=== PATIENT | male | born 1940 | race Caucasian/White ===

== ENCOUNTER 2017-07-27 19:57 | Emergency (ER) | payer BC, MEDICARE ==
[~2017-07-27] VITALS: Ht 193 cm; Wt 118.2 kg
[~2017-07-27 19:57] MED LIST: ACTOS15 MG PO; ALLOPURINOL100 MG PO; AMARYL 2MG T2 MG/TAB PO; AMARYL1 MG PO; CIALIS20 MG PO; CRESTOR40 MG PO; DIOVAN320 MG PO; GLUCOPHAGE XR500 M1 PO; LANTUS100 U/ML; LEVOTHYROXINE PO; NOVOLOG FLEX100 U/ML SC; NOVOLOG100 U/ML SC
[2017-07-27 19:59] VITALS: TEMP 98.8
[2017-07-27 21:36] VITALS: BP 149/72; PULSE 66
== END 2017-07-27 21:37 | disposition home or self-care (01) ==
LOC: COL.ER 19:57
DX: S09.90XA Unspecified injury of head, initial encounter (principal); S01.01XA Laceration without foreign body of scalp, initial encounter; Z79.4 Long term (current) use of insulin; W18.39XA Other fall on same level, initial encounter; Y92.009 Unspecified place in unspecified non-institutional (private) residence as the place of occurrence of the external cause

== ENCOUNTER 2017-08-08 09:54 | Emergency (ER) | payer BC, MEDICARE | END 2017-08-08 10:10 | disposition home or self-care (01) | LOC: COL.ER 09:54 | DX: Z48.02 Encounter for removal of sutures (principal); Z79.4 Long term (current) use of insulin ==

== ENCOUNTER 2019-03-26 09:48 | Inpatient (IN) | payer BC ==
[~2019-03-26] VITALS: Ht 193 cm; Wt 111.0 kg
[~2019-03-26 09:48] MED LIST changes: +BENICAR40 MG PO; +OZEMPIC0.25 MG/0. SQ
[2019-04-06] VITALS (12 sets, daily range): BP systolic 118–148; BP diastolic 60–68; PULSE 70–88; TEMP 97.2–98.4
--- NOTE | 2019-04-06 12:42 | NUR ---
BG 267 reported to Doroteo Roblero CRNA. Orders for NS IVF and to re-check BG at 1300.
--- NOTE | 2019-04-06 12:50 | NUR ---
Patient arrives to [facility] [place] [facility] [place] with steady gait. He is alert and oriented. Procedure confirmed, denies any questions, and verbalizes understanding. VSS and WNL on room air. He changes to his clothing independently. PIV started in right forearm with x1 attempt and without complication. Breath sounds clear bilaterally to auscultation. Clear S1S2 heart tones heard with regular rate noted. PERRLA, pupils +2 bilaterally. No edema noted. Denies any numbness or tingling. Bowels sounds hypoactive. Abdomen soft, nontender. +2 radial pulses bilaterally. +1 DP and PT pulses bilaterally. Call light usage taught and within reach. Daughter, Lilly, at the bedside.
--- NOTE | 2019-04-06 13:06 | NUR ---
BG 267 reported to Doroteo Roblero CRNA. TORB received to treat with 4 units SQ Novolog and re-check prior to OR.
--- NOTE | 2019-04-06 19:34 | NUR ---
Pt arrived to unit from PACU. Pt had lap abner sig. Patient has 5 lap sites covered with bandaid, CD&I. 1 lap site midline covered with gauze. Pt is alert and oriented with VSS. Childs to dependent drainage, clear, yellow urine. IV to right forearm, LR running gravity. Pt denies pain at this time. Call light within reach, will continue to monitor.
--- NOTE | 2019-04-06 20:09 | NUR ---
Pt to hold insulin this evening per Dr. Dunne. Received mid-dose sliding scale insulin in PACU
--- NOTE | 2019-04-06 21:40 | NUR ---
Pt ambulated in hallway 150ft. Tolerated well
[2019-04-07 05:03] VITALS: BP 119/71; PULSE 81; TEMP 97.9
[2019-04-07 07:34] LABS: HEMATOCRIT 41.2 % (42.0-52.0); HEMOGLOBIN 13.5 g/dl (13.5-18.0); MEAN CELL VOLUME 91 fl (80.0-100.0); MEAN CORPUSCULAR HEMOGLOBIN 30 pg (27.0-31.0); MEAN CORPUSCULAR HGB CONC 33 g/dl (33.0-37.0); MEAN PLATELET VOLUME 10.7 fl (7.4-10.4); PLATELET COUNT 174 K/mm3 (130-400); RED BLOOD COUNT 4.53 M/mm3 (4.20-5.60); REDCELL DISTRIBUTION WIDTH-CV 14.1 % (11.5-14.5)
[2019-04-07 07:41] LABS: CALCIUM 8.6 mg/dL (8.4-10.2); CREATININE, serum 1.83 (0.66-1.25); MAGNESIUM 1.8 mg/dL (1.6-2.3); PHOSPHOROUS 3.9 mg/dL (2.5-4.5)
[2019-04-07 07:44] LABS: POTASSIUM 6.2 mmol/L (3.4-5.0)
[2019-04-07 07:47] VITALS: BP 140/52; PULSE 72; TEMP 97.9
[2019-04-07 08:13] LABS: BAND 17 % (0-10); NEUTROPHILS 78 % (42.0-75.2); PLATELET ESTIMATE NORMAL (NORMAL)
--- NOTE | 2019-04-07 09:00 | NUR ---
Patient resting in bed. We ambulated halls- he did well. notifed of elevated K+. Orders obtained. Consult called to Karen with hospitalist. Ekg completed. Tele on. Insulin per high sliding scale with elevated sugars. Will progress to low fiber/ada diet. Amadeo zendejas DD. Will monitor.
--- NOTE | 2019-04-07 09:38 | NUR ---
CHRISTOPHER met with the patient to complete initial intake. The patient lives alone in [place]. The patient has a walker, if needed and reports independence with ADLs. The patient's PCP is Dr. Adkins and patient [place] [facility] [place]. The patient does not have advanced directives in the EMR but reports they are completed and designate his daughter, Lilly Bravo from [place]. The patient reports Lilly will be visiting to assist after this hospitalization. The patient plans to return home with Lilly providing transportation. There are no additional needs at this time.
--- NOTE | 2019-04-07 10:09 | NUR ---
First visit from the abstract checker. No needs right now.
[2019-04-07 11:04] LABS: MUCOUS Present /lpf; PH 5 (5-8); SQUAMOUS EPITHELIAL None Seen /hpf; URINE APPEARANCE Hazy; URINE BACTERIA None Seen /hpf; URINE BILIRUBIN Negative (NEGATIVE); URINE BLOOD Negative (NEGATIVE); URINE COLOR Yellow; URINE GLUCOSE 3+ (NEGATIVE); URINE KETONE Negative (NEGATIVE); URINE LEUKOCYTE ESTERASE Negative (NEGATIVE); URINE NITRATE Negative (NEGATIVE); URINE PROTEIN(semi-quant) 2+ (NEGATIVE); URINE RBC 0-2 /hpf; URINE UROBILINOGEN Negative (NEGATIVE)
[2019-04-07 11:33] LABS: COLLECTION METHOD CLEAN CATCH
[2019-04-07 11:50] VITALS: BP 107/57; PULSE 100; TEMP 98.6
--- NOTE | 2019-04-07 13:50 | NUR ---
Hopsitalist team rounded. Orders obtained. Insulin per orders. Patient did well with low fiber/diabetic diet lunch. Amadeo stockton. Will continue accutrate I&O.
[2019-04-07 16:25] VITALS: BP 138/58; PULSE 72; TEMP 97.7
--- NOTE | 2019-04-07 19:09 | NUR ---
Patient resting in bed. He continues to do well. Eras protocol. He has voided. He tolerated dinner well. Ivf per orders. Report to night nurse
[2019-04-07 20:22] VITALS: BP 139/59; PULSE 67; TEMP 98
--- NOTE | 2019-04-07 21:00 | NUR ---
Patient report received from CANDY Lucas. Upon assessment at this time patient is resting comfortably in bed. Denies significant pain, rating it at 2/10, no n/v. Lap sites x 5 with bandaids CDI, lower transverse with airstrip CDI. Childs discontinued this afternoon by day shift, patient has voided once since then, will continue to monitor. No other needs reported/observed.
[2019-04-08] VITALS (7 sets, daily range): BP systolic 110–134; BP diastolic 40–66; PULSE 56–90; TEMP 97.7–98.2
[2019-04-08 07:51] LABS: BASO % 0.3 % (0.0-2.0); EOS # 0.1 (0.0-0.7); GRAN # 7.6 (1.4-6.5); GRAN % 81.5 % (42.2-75.2); HEMATOCRIT 38.1 % (42.0-52.0); HEMOGLOBIN 12.4 g/dl (13.5-18.0); LYMPH # 0.9 (1.2-3.4); LYMPH % 9.2 % (20.0-51.0); MEAN CELL VOLUME 92 fl (80.0-100.0); MEAN CORPUSCULAR HEMOGLOBIN 30 pg (27.0-31.0); MEAN CORPUSCULAR HGB CONC 33 g/dl (33.0-37.0); MEAN PLATELET VOLUME 10.8 fl (7.4-10.4); MONO # 0.7 (0.1-0.6); MONO % 7.4 % (1.7-9.3); PLATELET COUNT 166 K/mm3 (130-400); RED BLOOD COUNT 4.14 M/mm3 (4.20-5.60); REDCELL DISTRIBUTION WIDTH-CV 14.6 % (11.5-14.5)
[2019-04-08 08:01] LABS: CALCIUM 8.8 mg/dL (8.4-10.2); CREATININE, serum 1.3 (0.66-1.25); POTASSIUM 4.7 mmol/L (3.4-5.0)
--- NOTE | 2019-04-08 11:00 | NUR ---
Patient has been doing well this morning. He is up moving around the room. Denies pain and nausea. Passing flatus without problems. Tolerating low residue diet well. His potassium is better today. Pain is controlled with scheduled tylenol. Patient has showered. No other changes at this time. Call light within reach.
--- NOTE | 2019-04-08 18:00 | NUR ---
Patient did well today. He is hoping to discharge home tomorrow. Pain is well controlled. No other changes at this time. Call light within reach.
--- NOTE | 2019-04-08 20:20 | NUR ---
Pt. sitting up in chair at this time. Pt. is A&OX3, assessment complete. INT to rt. forearm patent. Pt. denies pain. Abd. lap incisions X5 edges well approximated open to air. Low transverse incision edges well approximated. Pt. denies further needs at this time. Call light within reach.
[2019-04-09 03:41] VITALS: BP 112/38; PULSE 52; TEMP 97.8
[2019-04-09 06:42] LABS: BASO % 0.5 % (0.0-2.0); EOS # 0.3 (0.0-0.7); EOS % 4.2 % (0-4.0); GRAN # 4.6 (1.4-6.5); GRAN % 73.6 % (42.2-75.2); HEMOGLOBIN 11.9 g/dl (13.5-18.0); LYMPH # 0.8 (1.2-3.4); LYMPH % 12.7 % (20.0-51.0); MEAN CELL VOLUME 93 fl (80.0-100.0); MEAN CORPUSCULAR HEMOGLOBIN 30 pg (27.0-31.0); MEAN CORPUSCULAR HGB CONC 32 g/dl (33.0-37.0); MEAN PLATELET VOLUME 10.6 fl (7.4-10.4); MONO # 0.5 (0.1-0.6); MONO % 8.4 % (1.7-9.3); PLATELET COUNT 150 K/mm3 (130-400); RED BLOOD COUNT 3.99 M/mm3 (4.20-5.60); REDCELL DISTRIBUTION WIDTH-CV 14.7 % (11.5-14.5)
[2019-04-09 06:59] LABS: CALCIUM 9.1 mg/dL (8.4-10.2); CREATININE, serum 0.97 (0.66-1.25); POTASSIUM 4.4 mmol/L (3.4-5.0)
[2019-04-09 08:39] VITALS: BP 149/57; PULSE 61; TEMP 98.2
[2019-04-09 12:25] VITALS: BP 146/64; PULSE 54; TEMP 97.5
[2019-04-09] MEDS ORDERED: ULTRAM 50MG TAB50 MG PO (14:42)
--- NOTE | 2019-04-09 15:35 | NUR ---
Patient is discharging home. He has been doing well today. Discharge instructions discussed with patient. He knows to call Friday for a follow up appointment. Attempted to make his appointment but the office was closed. Explained he has prescription for tramadol to get filled. Copies of discharge instructions given to patient. No questions verbalized. Patient walked out with this nurse.
== END 2019-04-09 15:35 | disposition home or self-care (01) | DRG 330 ==
LOC: INPTSU 04-06 11:30 → SURG 04-06 14:30
PROVIDERS: Physician Assistant; ADMIT Surgery
PROC: 8E0W4CZ Robotic Assisted Procedure of Trunk Region, Percutaneous Endoscopic Approach (ICD-10-PCS; 2019-04-06)
PROC: 0DTN4ZZ Resection of Sigmoid Colon, Percutaneous Endoscopic Approach (ICD-10-PCS; principal; 2019-04-06 14:30)
DX: K57.32 Diverticulitis of large intestine without perforation or abscess without bleeding (principal); K56.699 Other intestinal obstruction unspecified as to partial versus complete obstruction; N17.9 Acute kidney failure, unspecified; M10.9 Gout, unspecified; M19.90 Unspecified osteoarthritis, unspecified site; E78.00 Pure hypercholesterolemia, unspecified; E11.9 Type 2 diabetes mellitus without complications; E87.5 Hyperkalemia; I10 Essential (primary) hypertension; Z85.46 Personal history of malignant neoplasm of prostate; Z79.4 Long term (current) use of insulin; Z87.442 Personal history of urinary calculi; Z90.79 Acquired absence of other genital organ(s)
CPT/HCPCS: OP; 99223; 99231-AI; A4314; A9284; J0171; J0330; J0690; J1100; J1644; J1815; J2405; J2704; J3010; J7030; J7120

== ENCOUNTER 2020-07-11 10:30 | Day surgery (SDC) | payer BC ==
[~2020-07-11] VITALS: Ht 193 cm; Wt 120.0 kg
[~2020-07-11 10:30] MED LIST changes: -LEVOTHYROXINE PO; +SYNTHROID0.175 MG PO; +ULTRAM 50MG TAB50 MG PO
--- NOTE | 2020-07-11 11:45 | NUR ---
DOE PHYSICAL THERAPIST IN TO PROVIDE EDUCATION WITH PATIENT AND DAUGHTER PRIOR TO PROCEDURE.
--- NOTE | 2020-07-11 11:50 | NUR ---
Hilario MITCHELL CRNA NOTIFIED OF PATIENTS BLOOD SUGAR 243. NO NEW ORDERS RECEIVED AT THIS TIME.
[2020-07-11] MEDS ORDERED: BASAGLAR K100 UNIT/1 SQ ×2 (11:54→11:55)
[2020-07-11] MEDS ORDERED: NOVOLOG FLEX100 U/ML SQ ×2 (11:58→11:59)
[2020-07-11] MEDS ORDERED: ZYLOPRIM 300MG300 MG PO (12:00)
[2020-07-11] MEDS ORDERED: GLUCOPHAGE XR500 M1 PO (12:02)
[2020-07-11 12:07] VITALS: BP 132/77; PULSE 77; TEMP 97.7
[2020-07-11] MEDS ORDERED: NORCO 325 MG-51 TAB PO (14:04)
[2020-07-11 14:42] VITALS: BP 116/56; PULSE 65; TEMP 97.3
--- NOTE | 2020-07-11 14:42 | NUR ---
PT TO [facility] [place] [facility] VIA CART ACCOMPANIED BY MICKEY GUPTA. IVF INFUSING, O2 AT 2L PER NASAL CANNULA. PT ALERT AND ORIENTED. PT DENIES PAIN OR NAUSEA/VOMITING. WOUND VAC IN PLACE TO RIGHT LOWER LEG WOUND, BANDAGE C/D/I. DRESSING IN PLACE TO RIGHT UPPER LEG WHERE SKIN GRAFT WAS TAKEN, DRESSING C/D/I. CMS WNL TO TOES ON RIGHT LEG. TOES COLD, BUT PT STATES THIS IS NORMAL FOR HIM. UNABLE TO PALPATE PEDAL PULSE DUE TO DRESSING IN PLACE. WATER PROVIDED. O2 DISCONTINUED. PT RESTING IN CART, DAUGHTER AT BEDSIDE. VITALS WNL. CALL LIGHT IN REACH.
[2020-07-11 14:50] VITALS: BP 119/62; PULSE 61
--- NOTE | 2020-07-11 14:50 | NUR ---
PT RESTING IN CART, DRINKING WATER WITH NO DIFFICULTY. PT DENIES PAIN OR NAUSEA. BLUE CORTES MUFFIN PROVIDED. VITALS WNL. DAUGHTER AT BEDSIDE, CALL LIGHT IN REACH.
[2020-07-11 15:05] VITALS: BP 124/65; PULSE 62
--- NOTE | 2020-07-11 15:05 | NUR ---
PT TOLERATING FLUIDS AND FOOD WITHOUT NAUSEA OR PAIN. IV SALINE LOCKED AT THIS TIME. PT DENIES NEEDS, RESTING IN CART. DAUGHTER AT BEDSIDE. CALL LIGHT IN REACH.
[2020-07-11 15:20] VITALS: BP 130/61; PULSE 63
--- NOTE | 2020-07-11 15:20 | NUR ---
PT UP TO RESTROOM USING FRONT WHEELED WALKER WITH STANDBY ASSIST X2. PT ABLE TO SUPPORT SELF WITHOUT BEARING WEIGHT TO RIGHT LEG. PT RETURNS TO BED. IV DISCONTINUED. PT CHANGED TO PERSONAL CLOTHES WITH ASSISTANCE FROM THIS NURSE AND DAUGHTER. PT ABLE TO SIT AT SIDE OF BED WITHOUT DIFFICULTY. ALL QUESTIONS ANSWERED REGARDING WOUND VAC. URINALS PROVIDED FOR HOME USE. PT DENIES FURTHER NEEDS AT THIS TIME. RESTING IN BED, CALL LIGHT IN REACH.
--- NOTE | 2020-07-11 16:25 | NUR ---
DISCHARGE INSTRUCTIONS PROVIDED. PT AND DAUGHTER VERBALIZE UNDERSTANDING. UNABLE TO OBTAIN SIGNATURE PAGE, PT ACCIDENTALLY TOOK IT WITH HIM. PT DISCHARGED VIA WHEEL CHAIR TO PRIVATE VEHICLE VIA WHEEL CHAIR. PT BELONGINGS, WOUND VAC ITEMS AND INSTRUCTIONS, CRUTCHES, AND DISCHARGE INSTRUCTIONS SENT WITH PT AND DAUGHTER. PT DENIES FURTHER QUESTIONS OR COMPLAINTS. PT'S DAUGHTER DRIVING PT HOME.
== END 2020-07-11 16:25 | disposition home or self-care (01) ==
LOC: SDCO 10:30
DX: C44.712 Basal cell carcinoma of skin of right lower limb, including hip (principal); E11.9 Type 2 diabetes mellitus without complications; I10 Essential (primary) hypertension; M10.9 Gout, unspecified; E89.0 Postprocedural hypothyroidism; Z20.822 Contact with and (suspected) exposure to COVID-19; Z79.4 Long term (current) use of insulin; Z85.46 Personal history of malignant neoplasm of prostate; Z79.899 Other long term (current) drug therapy; Z79.890 Hormone replacement therapy; Z87.891 Personal history of nicotine dependence
CPT/HCPCS: J0171; J0690; J2405; J2704; J3010; J7030

== ENCOUNTER 2021-09-20 14:35 | Inpatient (IN) | payer BC ==
[~2021-09-20] VITALS: Ht 193 cm; Wt 106.8 kg
[~2021-09-20 14:35] MED LIST changes: +BASAGLAR K100 UNIT/1 SQ; +NORCO 325 MG-51 TAB PO; +NOVOLOG FLEX100 U/ML SQ; +ZYLOPRIM 300MG300 MG PO
[2021-09-20] MEDS ORDERED: CASODEX 50MG TA50 MG PO (17:17)
[2021-09-20] MEDS ORDERED: DECADRON 4MG TAB4 MG PO (17:18)
[2021-09-20] MEDS ORDERED: COMPAZINE IJ (17:19)
[2021-09-20 17:20] VITALS: BP 134/68; PULSE 52; TEMP 98.1
[2021-09-20] MEDS ORDERED: CUBICIN 500MG500 MG IV (17:20)
--- NOTE | 2021-09-20 20:30 | NUR ---
PT RESTING IN BED. ASSISTED TO BR FOR BM. PAREKH DRAINING CLEAR YELLOW URINE W/O DIFFICULTY. BACK TO BED. PT ABLE TO LIFT LEGS IN TO BED. LEFT LEG WEAKER THAN RIGHT. ABLE TO TURN FOR COMFORT IN BED. CALL LIGHT IN REAch. bed alarm set.
--- NOTE | 2021-09-21 00:54 | NUR ---
SEE MAR FOR ROXICODONE GIVEN FOR UPPER BACK PAIN. LEVEL 5/10
[2021-09-21 05:36] VITALS: BP 124/65; PULSE 53; TEMP 97.6
[2021-09-21 06:22] LABS: HEMOGLOBIN 10.3 g/dl (13.5-18.0); MEAN CELL VOLUME 89 fl (80.0-100.0); MEAN CORPUSCULAR HEMOGLOBIN 29 pg (27-31); MEAN CORPUSCULAR HGB CONC 32 g/dl (33.0-37.0); MEAN PLATELET VOLUME 10.6 fl (7.4-10.4); PLATELET COUNT 362 K/mm3 (130-400); RED BLOOD COUNT 3.59 M/mm3 (4.20-5.60); REDCELL DISTRIBUTION WIDTH-CV 15.9 % (11.5-14.5)
[2021-09-21 06:29] LABS: CALCIUM 7.6 mg/dL (8.4-10.2); CREATININE, serum 1.02 mg/dL (0.72-1.25); POTASSIUM 4.3 mmol/L (3.5-4.5)
[2021-09-21 06:31] LABS: HEMATOCRIT 31.9 % (42.0-52.0)
[2021-09-21 07:42] LABS: BAND 5 % (0-10); HYPOCHROMIA 1+; LYMPHOCYTE 8 % (20.0-51.0); NEUTROPHILS 86 % (42.0-75.2); PLATELET ESTIMATE NORMAL (NORMAL)
[2021-09-21 07:43] LABS: POLYCHROMASIA 2+
--- NOTE | 2021-09-21 15:37 | NUR ---
SW met with patient to complete intake. Discussed my role within the care team. Patient currently lives at home in [place] and at this time his daughter Lilly ([phone]) is staying with him. Prior to this stay he has been independent with his ADL's and does not utilize any DME to assist with ambulation and no home oxygen needs. PCP is Dr. Adkins and he utilizes [facility] for medications needs. Patient reports that he does have a DPOa-HC established listing his daughter Lilly as his agent. Patient asks about list of private duty caregivers in addition to HH services. Explained to the patient that private duty caregivers are not covered under insurance and that it would be private pay, however HH services would be covered under his insurance. Educated the patient that he would be able to have both as long as it was the same agency.
[2021-09-21 17:52] VITALS: BP 157/63; PULSE 63; TEMP 97.5
--- NOTE | 2021-09-21 18:13 | NUR ---
PATIENT ALERT AND ORIENTED X3. VSS. PATIENT HERE FOR LAMINECTOMY OF L3 AND L4. PATIENT REPORTS MILD PAIN, DENIES NEED FOR PAIN MEDICATION. PICC TO RIGHT UPPER ARM, SINGLE LUMEN, FLUSHES WELL, GOOD BLOOD RETURN. PAREKH DC'D. NO RESIDUAL. BLADDER SCAN PERFORMED. NO RESIDUAL URINE WITHIN BLADDER. PATIENT ENCOURAGED TO DRINK FLUIDS AND USE URINAL. CALL LIGHT WITHIN REACH.
--- NOTE | 2021-09-21 18:14 | NUR ---
PATIENT URINATED 175ML, REPORTS SPILLING SOME. BLADDER SCAN PERFORMED, NO RESIDUAL. PATIENT DENIES FEELING OF URGENCY OR URINE RETENTION. WILL REPORT TO TYPESETTERS PRINTER NURSE. PATIENT IN CHAIR WITH CALL LIGHT NEAR.
--- NOTE | 2021-09-21 20:00 | NUR ---
RESTING IN BED. SEE MAR FOR PAIN MED GIVEN- BACK PAIN. PT HAS NO NEED TO VOID YET. WILL CONTINUE TO MONITOR. CALL LIGHT IN REACH. BED ALARM SET.
--- NOTE | 2021-09-21 21:50 | NUR ---
PT HAD LARGE INCONTINENT URINE. PT UNABLE TO VOID FURTHER IN URINAL. ENC PO FLUIDS. PT VERBALIZED UNDERSTANDING.
--- NOTE | 2021-09-22 02:21 | NUR ---
PT INCONTINENT OF URINE IN BREIF. CHECK BLADDER W/O RESIDUAL NOTED. PT HAS NO URINARY CONTROL.
[2021-09-22 05:30] VITALS: BP 145/63; PULSE 57; TEMP 97.7
--- NOTE | 2021-09-22 07:04 | NUR ---
Shift report received from night supervisor RN. Pt. awake and resting in bed. He denies pain/discomfort. Call light is within his reach
--- NOTE | 2021-09-22 13:46 | NUR ---
Pt resting in bed. He has completed all therapies for the day. Daughter will come back to visit this evening. Dsg. to low back CDI. Pt. denies pain or discomfort at this time. Call light is within his reach
[2021-09-22 17:46] VITALS: BP 122/51; PULSE 89; TEMP 97.8
--- NOTE | 2021-09-22 17:48 | NUR ---
Pt. lying supine in bed watching television. PRN pain medication given approx 30 min ago for back pain. Dsg to lumbar spine is CDI. Pt. denies further needs. Call light is within his reach
--- NOTE | 2021-09-22 20:18 | NUR ---
PT UP TO BR. HAD BLOODY URINE. NOTIFIED STEPHIE WEATHERS. NEW ORDER FOR UA. WILL CONTINUE TO MONITOR.
--- NOTE | 2021-09-23 00:19 | NUR ---
PT ASSISTED TO BR. VOIDED CLEAR YELLOW URINE. NO OBVIOUS BLOOD.M SENT TO LAB.
[2021-09-23 00:42] LABS: COLLECTION METHOD CLEAN CATCH
[2021-09-23 01:23] LABS: MUCOUS Present (NOT PRESENT); PH 6 (5-8); SQUAMOUS EPITHELIAL 0-2 /hpf (0-10); URINE APPEARANCE Hazy (CLEAR/HAZY); URINE BACTERIA None Seen /hpf (NONE SEEN); URINE BILIRUBIN Negative (NEGATIVE); URINE BLOOD 2+ (NEGATIVE); URINE COLOR Yellow (YELLOW); URINE GLUCOSE 1+ (NEGATIVE); URINE KETONE Negative (NEGATIVE); URINE LEUKOCYTE ESTERASE Negative (NEGATIVE); URINE NITRATE Negative (NEGATIVE); URINE PROTEIN(semi-quant) 2+ (NEGATIVE); URINE RBC 20-50 /hpf (0-2); URINE UROBILINOGEN Negative (NEGATIVE)
[2021-09-23 05:19] VITALS: BP 148/58; PULSE 52; TEMP 97.8
--- NOTE | 2021-09-23 08:05 | NUR ---
PT SITTING UP IN BED FINSIHING BREAKFAST. PT STATES THAT HE WOULD LIKE TO GO TO THE RESTROOM. PT WAS ASSISTED VIA WALKER. PT STATES THAT HE HAD A SMALL BM AND DID VOID AND IT WAS "A LITTLE RED." PT STATES THAT HE WOULD LIKE TO HAVE SOME PAIN MEDICATION. PRN PAIN PILLS WERE GIVEN. PT STATES NO OTHER NEEDS AT THIS TIME. CALL LIGHT IS WITHIN REACH.
[2021-09-23 14:23] LABS: HEMOGLOBIN 10.4 g/dl (13.5-18.0)
[2021-09-23 14:26] LABS: HEMATOCRIT 31.8 % (42.0-52.0)
[2021-09-23 17:32] VITALS: BP 155/65; PULSE 51; TEMP 98.1
--- NOTE | 2021-09-23 18:39 | NUR ---
PT LAYING IN BED. PT STATES HE WOULD LIKE TO GO TO THE BATHROOM. ASSITED PT TO BATHROOM VIA WALKER AND STANDBY ASSIST. PT STATES THAT HE HAD A FEW BLOODY URINES TODAY. WAS MADE AWARE OF THIS. PT ALSO REFUSED BLADDER SCAN FOR THIS EVENING. STATES "I DO NOT NEED THAT, I HAVE BEEN GOING GOOD." PT STATES NO OTHER NEEDS/CONCERNS. CALL LIGHT IS WITHIN REACH.
--- NOTE | 2021-09-23 19:55 | NUR ---
PT RESTING IN BED. C/O CONSTIPATION. WILL GIVE MIRALAX TONIGHT. ENC PO FLUIDS. PT BACK PAIN CONTROLLED. LEVEL 3/10. CALL LIGHT IN REACH. BED ALARM SET.
[2021-09-24 05:47] VITALS: BP 154/68; PULSE 58; TEMP 98.4
--- NOTE | 2021-09-24 06:14 | NUR ---
PT HAVING BM'S THROUGH THE NIGHT. PAIN UNDER CONTROL WITH ROXICODONE. AMB TO BR WITH STEADY GAIT. PT RELATES FEELS HE IS EMPTYING BLADDER FULLY. CALL LIGHT IN REACH. BED ALARM SET.
[2021-09-24 06:51] LABS: HEMOGLOBIN 10.3 g/dl (13.5-18.0); MEAN CELL VOLUME 92 fl (80.0-100.0); MEAN CORPUSCULAR HEMOGLOBIN 29 pg (27-31); MEAN CORPUSCULAR HGB CONC 32 g/dl (33.0-37.0); MEAN PLATELET VOLUME 10.9 fl (7.4-10.4); PLATELET COUNT 258 K/mm3 (130-400); RED BLOOD COUNT 3.55 M/mm3 (4.20-5.60)
[2021-09-24 06:54] LABS: HEMATOCRIT 32.5 % (42.0-52.0)
[2021-09-24 07:12] LABS: ALBUMIN 2.7 gm/dL (3.4-4.8); BILIRUBIN,TOTAL 0.7 mg/dL (0.2-1.2); C-REACTIVE PROTEIN 0.18 mg/dL (0.00-0.50); CALCIUM 8.1 mg/dL (8.4-10.2); CREATININE, serum 0.99 mg/dL (0.72-1.25); POTASSIUM 5.6 mmol/L (3.5-4.5); TOTAL PROTEIN 5.6 gm/dL (6.2-8.1)
--- NOTE | 2021-09-24 08:03 | NUR ---
SHIFT REPORT RECEIVED FROM CAR CLERK PULLMAN RN OSCAR. PT RESTING IN LEFT SIDE LYING POSITION IN BED. CALL LIGHT IS WITHIN HIS REACH
[2021-09-24 08:55] LABS: BAND 5 % (0-10); LYMPHOCYTE 5 % (20.0-51.0); METAMYELOCYTE 2 % (0-0); NEUTROPHILS 87 % (42.0-75.2); PLATELET ESTIMATE NORMAL (NORMAL)
--- NOTE | 2021-09-24 09:36 | NUR ---
Several visit attempts; Patient is not available at this time, Rn Perioperative left card informing patient of the availability of spiritual care at our hospital.
--- NOTE | 2021-09-24 12:41 | NUR ---
Phone call received from the patient's daughter that the patient would like to be established with [facility] HH in addition to private duty caregivers through [facility] as well.
--- NOTE | 2021-09-24 14:10 | NUR ---
Pt. resting in left side lying position. He has completed all PT/OT sessions for the day. He is now Mod I in his room. He continues to take PRN oxicodone for pain. He feels his pain is well controlled with this medication. Pt denies any urinary complaints - he does not feel like his bladder is full after urinating. He denies additional needs. Call light is within his reach.
[2021-09-24 16:46] VITALS: BP 158/59; PULSE 55; TEMP 97.8
--- NOTE | 2021-09-24 17:47 | NUR ---
Pt. resting supine in bed. He has just finished eating dinner. He rates pain at 1/10 right now. He denies additional needs. Call light is within his reach
--- NOTE | 2021-09-24 19:31 | NUR ---
RECEIVED CHANGE OF SHIFT REPORT FROM DAY SHIFT RN. PATIENT REQUESTING PAIN MED WHEN NEXT AVAILABLE.
--- NOTE | 2021-09-24 20:33 | NUR ---
PATIENT REQUESTING PAIN MEDS TO BE GIVEN EVERY 4 HOURS AND WANTS TO BE WAKEN UP FOR MEDS.
[2021-09-25 06:38] VITALS: BP 122/46; PULSE 50; TEMP 97.6
--- NOTE | 2021-09-25 07:03 | NUR ---
CHANGE OF SHIFT REPORT GIVEN TO DAY SHIFT RNRADHA.
[2021-09-25 07:48] LABS: CALCIUM 8.4 mg/dL (8.4-10.2); CREATININE, serum 1.04 mg/dL (0.72-1.25); POTASSIUM 5.5 mmol/L (3.5-4.5)
[2021-09-25] MEDS ORDERED: CUBICIN 500MG500 MG IV (09:48)
--- NOTE | 2021-09-25 11:49 | NUR ---
PATIENT ALERT AND ORIENTED X3. VSS. PATIENT HERE FOR LAMINECTOMY. PATIENT REPORTS PAIN 3/10. PICC TO RIGHT UPPER ARM, FLUSHES WELL AND GOOD BLOOD RETURN. ASSESSMENT PERFORMED. AM MEDS ADMINISTERED. PATIENT IN BED WAITING ON THERAPY. CALL LIGHT WITHIN REACH.
--- NOTE | 2021-09-25 11:50 | NUR ---
BLADDER SCAN PERFORMED. MINIMAL URINE IN BLADDER. PATIENT DENIES ANY FEELINGS OF BLADDER NOT EMPTYING.
--- NOTE | 2021-09-25 14:55 | NUR ---
Patient's clinical referral and order faxed to Kandi at [facility]. Contact made and informed her of the patient's discharge plan for tomorrow. Patient's clinical referral faxed to [facility]. Contact made and notified Jose Elias that the patient is scheduled to dc tomorrow and will have iv antibiotics through [facility].
--- NOTE | 2021-09-25 15:23 | NUR ---
Team meeting held with the patient and his daughter today. Also present is , IPR director, OT and PT. Team talked about the patient's progress and discharge plan for tomorrow back home with HH and private duty caregivers. Patient is excited to get home and is appreciative of the care he has gotten.
[2021-09-25 17:28] VITALS: BP 149/66; PULSE 56; TEMP 98.5
--- NOTE | 2021-09-25 19:36 | NUR ---
RECEIVED CHANGE OF SHIFT REPORT FROM DAY SHIFT RN. PATIENT UP IN ROOM AD BETSY WITH NO REPORTED PROBLEMS OR CONCERNS.
[2021-09-26 05:44] VITALS: BP 127/49; PULSE 50; TEMP 97.5
[2021-09-26 05:56] LABS: CREATININE, serum 1.07 mg/dL (0.72-1.25); POTASSIUM 5.5 mmol/L (3.5-4.5)
--- NOTE | 2021-09-26 06:45 | NUR ---
Shift report recieved from awake overnight monitor RN. Pt resting in bed. Call light is within his reach
--- NOTE | 2021-09-26 07:11 | NUR ---
CHANGE OF SHIFT REPORT GIVEN TO DAY SHIFT RNSEPIDEH.
[2021-09-26] MEDS ORDERED: NORVASC 5MG5 MG/TAB PO (10:30)
[2021-09-26] MEDS ORDERED: TYLENOL 325MG325 MG PO (10:32)
[2021-09-26] MEDS ORDERED: SENOKOT S 50 MG1 TAB PO (10:33)
[2021-09-26] MEDS ORDERED: DULCOLAX S10 MG/SUPP RC (10:33)
[2021-09-26] MEDS ORDERED: LEADER CLE17 GM/Dose PO (10:34)
[2021-09-26] MEDS ORDERED: DECADRON 4MG TAB4 MG PO (10:37)
[2021-09-26] MEDS ORDERED: DECADRON 1MG TAB1 MG PO (10:39)
[2021-09-26] MEDS ORDERED: NOVOLOG FLEX100 U/ML SQ (10:41)
[2021-09-26] MEDS ORDERED: ROXICODONE 55 MG/TAB PO (10:44)
[2021-09-26] MEDS ORDERED: HUMULIN N PE100 U/ML SQ (10:44)
--- NOTE | 2021-09-26 12:02 | NUR ---
Pt Health Summary, Discharge Summary, Home Meds reviewed with pt and his daughter. Discussed upcoming follow up appointments. They had no further questions. Pt. escorted via wheelchair to vehicle and seatbelted for ride home
--- NOTE | 2021-09-26 13:43 | NUR ---
Kandi Daugherty picked up the patient's discharge papaerwork while visiting this facility. Clinical updates and discharge orders faxed to Jose Elias at [facility].
== END 2021-09-26 11:55 | disposition home health service (06) | DRG 560 ==
PROVIDERS: Internal Medicine; Physician Assistant; Student in an Organized Health Care Education/Training Program; ADMIT Physical Medicine & Rehabilitation Sports Medicine
DX: Z47.89 Encounter for other orthopedic aftercare (principal); C79.51 Secondary malignant neoplasm of bone; N13.6 Pyonephrosis; E87.1 Hypo-osmolality and hyponatremia; E87.2 Acidosis; C61 Malignant neoplasm of prostate; Z66 Do not resuscitate; E89.0 Postprocedural hypothyroidism; B95.2 Enterococcus as the cause of diseases classified elsewhere; R00.0 Tachycardia, unspecified; R26.89 Other abnormalities of gait and mobility; E87.5 Hyperkalemia; E11.65 Type 2 diabetes mellitus with hyperglycemia; R33.9 Retention of urine, unspecified; E78.5 Hyperlipidemia, unspecified; M10.9 Gout, unspecified; I10 Essential (primary) hypertension; K59.00 Constipation, unspecified; N28.9 Disorder of kidney and ureter, unspecified; Z79.84 Long term (current) use of oral hypoglycemic drugs; Z79.4 Long term (current) use of insulin; Z73.6 Limitation of activities due to disability; Z79.899 Other long term (current) drug therapy; Z85.828 Personal history of other malignant neoplasm of skin; Z90.79 Acquired absence of other genital organ(s); W18.39XD Other fall on same level, subsequent encounter; Z87.442 Personal history of urinary calculi; Y92.003 Bedroom of unspecified non-institutional (private) residence as the place of occurrence of the external cause; T38.0X5D Adverse effect of glucocorticoids and synthetic analogues, subsequent encounter; R31.9 Hematuria, unspecified
CPT/HCPCS: 99222; 99232-AI; A9284; J0878; J1815; J8540

== ENCOUNTER 2022-07-23 11:23 | Inpatient (IN) | payer MEDICARE ==
[~2022-07-23] VITALS: Ht 193 cm; Wt 126.6 kg
[~2022-07-23 11:23] MED LIST changes: +CASODEX 50MG TA50 MG PO; +COMPAZINE IJ; +CUBICIN 500MG500 MG IV; +DECADRON 1MG TAB1 MG PO; +DECADRON 4MG TAB4 MG PO; +DULCOLAX S10 MG/SUPP RC; +HUMULIN N PE100 U/ML SQ; +LEADER CLE17 GM/Dose PO; +NORVASC 5MG5 MG/TAB PO; +ROXICODONE 55 MG/TAB PO; +SENOKOT S 50 MG1 TAB PO; -SYNTHROID0.175 MG PO; +SYNTHROID0.2 MG/TAB PO; +TYLENOL 325MG325 MG PO
[2022-07-23 12:10] LABS: BASO % 0.2 % (0.0-2.0); EOS # 0.1 K/mm3 (0.0-0.7); EOS % 1.6 % (0.0-4.0); GRAN # 4.4 K/mm3 (1.4-6.5); GRAN % 78.8 % (42.2-75.2); HEMOGLOBIN 10.2 g/dl (13.5-18.0); LYMPH # 0.6 K/mm3 (1.2-3.4); LYMPH % 10.2 % (20.0-51.0); MEAN CELL VOLUME 101 fl (80.0-100.0); MEAN CORPUSCULAR HEMOGLOBIN 34 pg (27-31); MEAN CORPUSCULAR HGB CONC 33 g/dl (33.0-37.0); MEAN PLATELET VOLUME 10.4 fl (7.4-10.4); MONO # 0.5 K/mm3 (0.1-0.6); MONO % 8.1 % (1.7-9.3); PLATELET COUNT 210 K/mm3 (130-400); RED BLOOD COUNT 3.03 M/mm3 (4.20-5.60); REDCELL DISTRIBUTION WIDTH-CV 13.6 % (11.5-14.5)
[2022-07-23 12:13] LABS: HEMATOCRIT 30.6 % (42.0-52.0)
[2022-07-23 12:28] LABS: ALBUMIN 3.3 gm/dL (3.4-4.8); ALKALINE PHOSPHATASE 70 U/L (40-150); ANION GAP 10 mmol/L (7-16); AST,SGOT 11 U/L (5-34); BILIRUBIN,TOTAL 0.3 mg/dL (0.2-1.2); BLOOD UREA NITROGEN 30 mg/dL (8-26); CALCIUM 9.1 mg/dL (8.4-10.2); CARBON DIOXIDE 20 mmol/L (23-31); CHLORIDE 110 mmol/L (98-107); CREATININE, serum 1.51 mg/dL (0.72-1.25); GLUCOSE 236 mg/dL (70-99); POTASSIUM 4.2 mmol/L (3.5-4.5); SODIUM 140 mmol/L (136-145); TOTAL PROTEIN 6.2 gm/dL (6.2-8.1)
[2022-07-23 12:38] LABS: ALANINE AMINOTRANSFERASE < 6 U/L (0-55); TROPONIN-I 0.798 ng/mL (0.00-0.033)
--- NOTE | 2022-07-23 14:45 | NUR ---
pt admitted to room from ED. admission assessment complete. pt standby assist w walker. pt on 1500ml fluid restriction. vss and tele in place. pt denies shortness of breath currently. no needs at this time. call light in reach.
[2022-07-23 14:50] LABS: CHOLESTEROL RISK RATIO 5.5
[2022-07-23] MEDS ORDERED: XTANDI40 M1 PO (14:53)
[2022-07-23 15:08] VITALS: BP 139/73; PULSE 89; TEMP 97.5
--- NOTE | 2022-07-23 15:24 | NUR ---
critical troponin of 0.883 called to emely carrillo.
[2022-07-23 17:12] VITALS: BP_SYST 139
--- NOTE | 2022-07-23 18:42 | NUR ---
called critical troponin to carla WEATHERS of 1.158
--- NOTE | 2022-07-23 18:55 | NUR ---
report given to Alberto GUPTA to resume care. pt moving to medical floor room 358.
[2022-07-23 19:35] VITALS: BP 128/67; PULSE 81; TEMP 98.3
[2022-07-24] VITALS (358 sets, daily range): BP systolic 94–126; BP diastolic 49–68; PULSE 50–68; TEMP 96.2–98; O2SAT 76–100
[2022-07-24 08:02] LABS: BASO % 0.6 % (0.0-2.0); EOS # 0.1 K/mm3 (0.0-0.7); EOS % 2.4 % (0.0-4.0); GRAN # 3.8 K/mm3 (1.4-6.5); LYMPH # 0.5 K/mm3 (1.2-3.4); LYMPH % 10.5 % (20.0-51.0); MEAN CELL VOLUME 101 fl (80.0-100.0); MEAN CORPUSCULAR HGB CONC 32 g/dl (33.0-37.0); MEAN PLATELET VOLUME 10.6 fl (7.4-10.4); MONO # 0.4 K/mm3 (0.1-0.6); MONO % 8.5 % (1.7-9.3); PLATELET COUNT 207 K/mm3 (130-400); RED BLOOD COUNT 2.94 M/mm3 (4.20-5.60); REDCELL DISTRIBUTION WIDTH-CV 13.6 % (11.5-14.5)
[2022-07-24 08:06] LABS: ALBUMIN 3.2 gm/dL (3.4-4.8); CALCIUM 9.3 mg/dL (8.4-10.2); CREATININE, serum 1.53 mg/dL (0.72-1.25); MAGNESIUM 1.7 mg/dL (1.6-2.6); PHOSPHOROUS 3.8 mg/dL (2.3-4.7); POTASSIUM 3.9 mmol/L (3.5-4.5)
[2022-07-24 08:08] LABS: HEMATOCRIT 29.6 % (42.0-52.0); HEMOGLOBIN 9.5 g/dl (13.5-18.0); MEAN CORPUSCULAR HEMOGLOBIN 32 pg (27-31)
[2022-07-24 08:19] LABS: TROPONIN-I 1.21 ng/mL (0.00-0.033)
--- NOTE | 2022-07-24 10:02 | NUR ---
Initial visit; Patient thanked Jetting Machine Operator for looking in on him though declined Spiritual Care.
--- NOTE | 2022-07-24 10:06 | NUR ---
SW met with pt for intake. Pt reports residing in [place] and his daughter Lilly Momin ([phone]) resides with him and is identified as NOK. Pt reports she is his caregiver assisting him with cooking. Pt reports otherwise he is independent in regards to showering and dressing self. Pt denies O2 use at home. Pt reports having stairs and denied having to use them. Pt reports following DME: shower chair, toilet riser, cane, and walker. Pt reports Medicare and [employer] as insurance. Pt confirmed PCP as Khris John and uses [facility] as pharmacy reporting no issues with retrieving and/or financial. Pt reports DPOA has Lilly as designee and will attempt to have a copy brought up for records. DC plan Home with daughter Lilly
--- NOTE | 2022-07-24 10:28 | NUR ---
PATIENT ALERT AND ORIENTED X3. NPO. HEART CATH PROCEDURE SCHEDULED FOR THIS AFTERNOON. IV FLUIDS RUNNING A 100/HR. ACHS BLOOD SUGARS. IV LASIX GIVEN THIS MORNING. IV TO LEFT FOREARM.
--- NOTE | 2022-07-24 15:33 | NUR ---
PATIENT WENT DOWN FOR HEART CATH. PATIENT IS NOW TRANSFERRING TO ICU AFTER HEART CATHETERIZATION. REPORT GIVEN TO ICU CHARGE NURSE.
--- NOTE | 2022-07-24 18:09 | NUR ---
PT TO ICU ROOM 5 AT 1620. PT ALERT AND ORIENTED. IABP IN PLACE VIA RIGHT FEMORAL. PT HAS TR BAND IN PLACE RIGHT RADIAL. BOTH SITES INSPECTED. LFA IV WITH NS RUNNING. PT HOOKED UP TO ICU MONITORING. REPORT GIVEN BY GIRMA GUPTA FROM [facility].
--- NOTE | 2022-07-24 19:00 | NUR ---
Received report from CANDY Mckee. Patient resting quietly in bed. Denies any pain or discomfort. Vitals within normal limits. Balloon pump continues at 1:1 frequency. TR band to R radial with 14mL of air in place. Right femoral site has drainage noted on gauze and tegaderm dressing but is not saturated or currently oozing. Bed in lowest position, all alarms on. No further needs noted at this time.
--- NOTE | 2022-07-24 20:00 | NUR ---
UPON INITIAL ASSESSMENT, PATIENT WAS ALERT AND ORENTED X4 AND POSITIONED SUPINE. NEUROLOGICAL STATUS WNL. LUNG SOUNDS CLEAR IN ALL LOBES WITH DIMINISHED BASES. UNLABORED BREATHING, NO USE OF ACCESSORY MUSCLES. PATIENT IS ON 3L O2 VIA OXYMASK. HEART SOUNDS S1,S2, NORMAL RATE/RHYTHM. CAP REFILL LESS THAN 3 SECONDS AND NO SKIN TENTING. PATIENT ABLE TO MOVE ALL EXTREMITIES EQUALLY. INCISION SITE WITH TR BAND IN PLACE OVER RIGHT RADIAL WRIST - CLEAN DRY AND INTACT. RIGHT FEMORAL SITE INCISION - SEROSANGUINOUS DRAINAGE NOTED. PEDEAL PULSES 1+. RADIAL PULSES 2+. 1+ EDEMA TO FEET BILATERALLY. PT STATES HE IS NOT IN ANY PAIN AND IS DOING FINE. NO FURTHER COMPLAINTS OR REQUESTS AT THIS TIME.
[2022-07-25] VITALS (1029 sets, daily range): BP systolic 80–125; BP diastolic 38–68; PULSE 49–70; TEMP 96.7–98.7; O2SAT 68–99
--- NOTE | 2022-07-25 00:05 | NUR ---
PATIENT IS AWAKE AND "MISERABLE". HE IS RATING HIS PAIN AT A 8 IN HIS NECK AND BACK - EXPLAINS THAT IT JUST FEELS STIFF FROM LAYING FLAT. MEDICATION ADMINISTERED TO RELIEVE DISCOMFORT. BED IN LOW POSITION, CALL LIGHT AND BELONGINGS IN REACH. NO FURTHER COMPLAINTS OR CONCERNS AT THIS TIME.
--- NOTE | 2022-07-25 03:15 | NUR ---
Last of air removed from TR band at this time. TR band remains in place. Will continue to monitor for oozing.
[2022-07-25 05:16] LABS: BASO % 0.4 % (0.0-2.0); EOS # 0.1 K/mm3 (0.0-0.7); EOS % 1.1 % (0.0-4.0); GRAN # 6.2 K/mm3 (1.4-6.5); GRAN % 82.8 % (42.2-75.2); LYMPH # 0.4 K/mm3 (1.2-3.4); LYMPH % 5.9 % (20.0-51.0); MEAN CELL VOLUME 99 fl (80.0-100.0); MEAN CORPUSCULAR HGB CONC 34 g/dl (33.0-37.0); MEAN PLATELET VOLUME 10.3 fl (7.4-10.4); MONO # 0.7 K/mm3 (0.1-0.6); MONO % 9.3 % (1.7-9.3); PLATELET COUNT 202 K/mm3 (130-400); RED BLOOD COUNT 2.82 M/mm3 (4.20-5.60); REDCELL DISTRIBUTION WIDTH-CV 13.9 % (11.5-14.5)
[2022-07-25 05:17] LABS: HEMATOCRIT 27.9 % (42.0-52.0); HEMOGLOBIN 9.4 g/dl (13.5-18.0); MEAN CORPUSCULAR HEMOGLOBIN 33 pg (27-31)
[2022-07-25 05:34] LABS: ALBUMIN 3.1 gm/dL (3.4-4.8); CALCIUM 8.9 mg/dL (8.4-10.2); CREATININE, serum 1.83 mg/dL (0.72-1.25); MAGNESIUM 1.8 mg/dL (1.6-2.6); PHOSPHOROUS 4.9 mg/dL (2.3-4.7)
--- NOTE | 2022-07-25 09:41 | NUR ---
RE:STent 07/24/22 Staff reviewed referral for outpatient Cardiac Rehab and discussed program with patient and daughter. Patient resting - but handout given reviewing Cardiovascular risk factors. Patient and daughter state that he is very interested in Cardiac Rehab. Staff will follow up 07/29/22 to schedule.
--- NOTE | 2022-07-25 11:12 | NUR ---
SW met with patient to complete intake. Patients daughter Lilly ([phone]) present at bedside. Patient reports that Lilly lives with him in the home located in [place]. Patient reports that he is independent with his ADL's and utilizes both a cane and a walker to assist with mobility. He has no home oxygen needs.PCP is and he utilizes [facility] for prescription needs. Patient reports that he does have a DPOA-HC established listing his daughter. Lilly states she has a copy of it at home and is willing to bring it in later. Patient currently on balloon pump which should be pulled later today.
--- NOTE | 2022-07-25 16:55 | NUR ---
IABP CATHETER REMOVAL Received order from Dr. Antony for IABP removal. Sheath and balloon removed, direct pressure held for 25 minutes. Vitals obtained q5. Venous sheath removed direct pressure held. Femstop applied per physician verbal order. No vital sign deviations noted. Site reviewed with Rylee RN, receiving nurse who denies questions/concerns.
--- NOTE | 2022-07-25 17:47 | NUR ---
PT BALLOON/ARTERIAL SHEATH AND VENOUS SHEATH REMOVED AT 1620. PRESSURE AND FEMSTOP DEPLOYED BY [facility] RNS. PT TOLERATED WELL.
--- NOTE | 2022-07-25 20:00 | NUR ---
UPON INITIAL ASSESSMENT, PATIENT WAS A&0 X 4 AND LYING FLAT IN BED. FEMOSTOP WAS IN PLACE WITH 17MMHG APPLIED. PATIENT HAS NO QUESTIONS OR CONCERNS AT THIS TIME.
--- NOTE | 2022-07-25 21:30 | NUR ---
PT AMBULATED TO BEDSIDE COMMODE AND WAS ABLE TO HAVE A MEDIUM SOFT BM. BATH WIPES WERE USED AND GOWNS/LINENS CHANGED. KATELYNN-AREA CLEANED. PATIENT AMBUKATED TO IN-ROOM SINK WITH STANDBY ASSIST. STEADY GAIT WITH WALKER. PT REPOSITIONED IN BED ON LEFT SIDE WITH MINIMAL ASSISTANCE. NO FURTHER COMPLAINTS OR CONCERNS AT THIS TIME.
[2022-07-26] VITALS (419 sets, daily range): BP systolic 93–136; BP diastolic 52–90; PULSE 60–76; TEMP 97.4–98.5; O2SAT 86–98
[2022-07-26 04:40] LABS: BASO % 0.3 % (0.0-2.0); EOS # 0.1 K/mm3 (0.0-0.7); EOS % 0.6 % (0.0-4.0); GRAN # 8.7 K/mm3 (1.4-6.5); GRAN % 85.5 % (42.2-75.2); LYMPH # 0.4 K/mm3 (1.2-3.4); MEAN CELL VOLUME 100 fl (80.0-100.0); MEAN CORPUSCULAR HGB CONC 33 g/dl (33.0-37.0); MEAN PLATELET VOLUME 10.4 fl (7.4-10.4); MONO # 0.9 K/mm3 (0.1-0.6); MONO % 9.2 % (1.7-9.3); PLATELET COUNT 209 K/mm3 (130-400); RED BLOOD COUNT 2.85 M/mm3 (4.20-5.60); REDCELL DISTRIBUTION WIDTH-CV 13.8 % (11.5-14.5)
[2022-07-26 04:43] LABS: HEMATOCRIT 28.5 % (42.0-52.0); HEMOGLOBIN 9.4 g/dl (13.5-18.0); MEAN CORPUSCULAR HEMOGLOBIN 33 pg (27-31)
[2022-07-26 04:59] LABS: ALBUMIN 3.1 gm/dL (3.4-4.8); CALCIUM 8.7 mg/dL (8.4-10.2); CREATININE, serum 3.06 mg/dL (0.72-1.25); MAGNESIUM 1.9 mg/dL (1.6-2.6); POTASSIUM 4.4 mmol/L (3.5-4.5)
--- NOTE | 2022-07-26 07:00 | NUR ---
BEDSIDE REPORT RECEIVED FROM CANDY RODRIGUEZ. PT ALERT AND ORIENTED THIS AM. PT INC. OF BOWEL. ASSISTED TO COMMODE TO FINISH BM. LINENS AND GOWN CHANGED. PT OFFERS NO COMPLAINTS. BED ALARM ON.
--- NOTE | 2022-07-26 09:38 | NUR ---
CHRISTOPHER collaborated with Oseas from cardiology on patients life vest. Per Oseas, cardiology office is ordering the life vest and establishing services through their office.
[2022-07-26] MEDS ORDERED: SYNTHROID 0.0.025 MG PO (10:37)
--- NOTE | 2022-07-26 12:00 | NUR ---
Palliative care consult completed; see nursing intervention. Patient & daughter (Lilly) present. Explained the reason for the consult was to start the conversation about recent diagnosis, current health care issues & goals for future. Reviewed information that was available in patient's EMR. Patient stated that he had not been told some of the things related to his cardiac status, so he was not sure how good or bad it was. 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 States that he lives at home with his daughter. He is able to bath himself & uses a cane or walker for ambulation. Discussed living will & DPOA. Lilly is DPOA; requested a copy for EMR. Patient stated that he has a living will; requested a copy for EMR. 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 Asked about CPR in the event of cardiac arrest; patient stated that he was a DNR. Asked about feeding tube & dialysis; patient was indecisive about the need for a feeding tube, but stated that he would not want dialysis. Advised that reviewing & potentially updating his living will may be a good choice to make to ensure that his wishes are documented. Daughter concerned about discharge plan & patient stated multiple times that he wants to go home (rather than a NH). Discussed that he may not have the strenght or be too much care for the daughter at home & patient stated that home health could come in. Daughter concerned about in home care. Discussed that she would be involved in discharge plan that was safe for patient & realistic what can/cannot be done at home. Discussed LTAC, SNF, IPR & home health. Discussed knowing when all of the treatment was too much & what would the patient not want for treatment in the future. Patient stated that he had many friends that went to [facility]; advised that they could make an appointment to tour anytime, but that is not an imminent need. Patient expressed again that he would rather be at home. Advised that we want to make sure that his daughter has the support she needs to take care of him in the home. Patient & daughter have many things that they plan to discuss in private. Provided daughter with contact information should she have any further questions. Update provided to CHRISTOPHER Jacome.
--- NOTE | 2022-07-26 15:20 | NUR ---
CHRISTOPHER met with patients daughter Lilly to follow up on palliative care conversation. Per Lilly, home with hospice is not an option for them. CHRISTOPHER discussed either the [facility] [place] vs. one of the local nursing homes; [facility], [facility] [place] or [facility] with an outside hospice agency. Lilly provided with [facility].gov lost of home health agencies, [facility].gov list of nursing facilities as well as various brochures for hospice agencies that service the [facility].
--- NOTE | 2022-07-26 16:15 | NUR ---
PT TRANFERED TO ROOM 328. REPORT GIVEN TO JOHN GUPTA. PT'S DAUGHTER AWARE OF ROOM CHANGE AND PRESENT AT THIS TIME. ALL BELONGINGS BROUGHT TO RM 328. CANDY KUMARI IN ROOM UPON PT'S ARRIVAL. PT ASSISTED TO TOILEN THEN TO CHAIR. PT OFFERS NO COMPLAINTS AT THIS TIME.
--- NOTE | 2022-07-26 16:37 | NUR ---
Patient to room 328 from ICU. VSS. Patient A&O. Currently requiring 4.5 L of O2 via nasal cannula. Childs catheter in place, securment device in place, no kinks in tubing. Daughter to bring medication list in from [facility] so that i can be updated. IV fluids running as ordered. Patient denies any pain, discomfort, SOA, or further needs at this time. Call light in reach. Fall percautions in place.
--- NOTE | 2022-07-26 20:00 | NUR ---
PT WAS SITTING IN RECLINER EARLIER. NOW IN BED. HOB ELEVATED. PT REPORTS HAS OCCASIONAL COUGH BUT UNABLE TO PRODUCE SPUTUM. HE FEELS LIKE HE NEEDS TO. O2 NOW DOWN TO 2L NC. NO RESP DISTRESS. F/C DRAINING SMALL AMTS OF YELLOW/PINK HAZY URINE. WILL CONTINUE TO MONITOR. DENIES PAIN. CALL LIGHT IN REACH. BED ALARM SET.
--- NOTE | 2022-07-26 20:24 | NUR ---
rt here. o2 sat 98%. o2 down to o2 2l nc
--- NOTE | 2022-07-26 22:30 | NUR ---
UA OBTAINED PER F/C AND SENT TO LAB. IV 1/2NS INCREASED TO 60CC/HR.
[2022-07-26 22:40] LABS: COLLECTION METHOD CATHETER
[2022-07-26 22:47] LABS: MUCOUS Present (NOT PRESENT); SQUAMOUS EPITHELIAL None Seen /hpf (0-10); URINE BACTERIA None Seen /hpf (NONE SEEN); URINE RBC >50 /hpf (0-2)
[2022-07-26 22:48] LABS: URINE APPEARANCE Cloudy (CLEAR/HAZY); URINE BLOOD 3+ (NEGATIVE); URINE COLOR Yellow (YELLOW); URINE GLUCOSE TRACE (NEGATIVE); URINE KETONE TRACE (NEGATIVE); URINE NITRATE Negative (NEGATIVE); URINE PROTEIN(semi-quant) 3+ (NEGATIVE); URINE UROBILINOGEN 0.2 E.U/dL (0.2-1.0)
--- NOTE | 2022-07-27 01:09 | NUR ---
UA INDICATES UTI. STARTED IV ROCEPHIN.
--- NOTE | 2022-07-27 02:45 | NUR ---
PT USING CALL LIGHT FREQUENTLY. WORRIED ABOUT ABT ANS FREQUENCY. PT ALITTLE CONFUSDED BUT ORIENTS QUICKLY. O2 SAT 94% ON 2L O2. NO PAIN. DRIFTS OFF TO SLEEP.
--- NOTE | 2022-07-27 03:08 | NUR ---
ASSISTED TO BR WITH WALKER. WEAK GAIT. HAD SOME LOOSE LIQ INCONT STOOL ON CHUX. HAD SMALL LOOSE IN STOOL. NEEDED ASSIST WITH WIPING. BACK TO BED. HOB ELEVATED. CONTINUED LOW UO. CALL LIGHT IN REACH. BED ALARM SET.
[2022-07-27 04:10] VITALS: BP 111/52; PULSE 66; TEMP 97.4
--- NOTE | 2022-07-27 04:31 | NUR ---
NOTIFIED STEPHIE SANTOS OF [facility] SO [facility]AR THIS SHIFT.
[2022-07-27 07:05] LABS: MEAN CELL VOLUME 99 fl (80.0-100.0); MEAN CORPUSCULAR HGB CONC 33 g/dl (33.0-37.0); MEAN PLATELET VOLUME 10.6 fl (7.4-10.4); PLATELET COUNT 183 K/mm3 (130-400); RED BLOOD COUNT 2.71 M/mm3 (4.20-5.60); REDCELL DISTRIBUTION WIDTH-CV 13.7 % (11.5-14.5)
[2022-07-27 07:09] LABS: HEMATOCRIT 26.9 % (42.0-52.0); HEMOGLOBIN 8.8 g/dl (13.5-18.0); MEAN CORPUSCULAR HEMOGLOBIN 32 pg (27-31)
[2022-07-27 07:21] LABS: CALCIUM 8.2 mg/dL (8.4-10.2); CREATININE, serum 4.59 mg/dL (0.72-1.25); PHOSPHOROUS 7.9 mg/dL (2.3-4.7); POTASSIUM 4.6 mmol/L (3.5-4.5)
--- NOTE | 2022-07-27 07:43 | NUR ---
PATIENT UP TO BATHROOM THIS MORNING. PATIENT DENIES ANY PAIN AT THIS TIME. HEART CATH RIGHT GROIN SITE, CDI WITH GAUZE. IV TO LEFT FA WITH 1/2 NS RUNNING AT 60ML/HOUR. PAREKH TO DD WITH CLOUDY PEACH TONED. PATIENT IN CHAIR, ALARM ACTIVATED, CALL LIGHT IN REACH.
[2022-07-27 08:00] VITALS: BP 110/53; PULSE 61; TEMP 97.5
--- NOTE | 2022-07-27 08:19 | NUR ---
[facility] REP REPORTS PATIENT REFUSED DEVICE. REP REPORTS PATIENT HAS RIGHT TO CHANGE THEIR MIND AND IF SO, CALL THE NUMBER LISTED ON PAPERWORK LEFT BEHIND.
[2022-07-27 08:43] LABS: BAND 7 % (0-10); BASOPHIL 1 % (0-2); LYMPHOCYTE 4 % (20.0-51.0); NEUTROPHILS 86 % (42.0-75.2)
[2022-07-27 08:44] LABS: PLATELET ESTIMATE NORMAL (NORMAL)
--- NOTE | 2022-07-27 11:49 | NUR ---
Dr. Carrion is updated on plan of care; patient will require placement following the weekend for discharge. Social Work notes indicate family is given resources/information for three area SNF placements and [facility]; placement conversation is initiated with daughter and patient.
[2022-07-27 12:00] VITALS: BP 123/62; PULSE 69; TEMP 98.1
[2022-07-27 15:55] VITALS: BP 104/83; PULSE 63; TEMP 97.6
[2022-07-27 19:22] VITALS: BP 108/60; PULSE 64; TEMP 98.6
--- NOTE | 2022-07-27 20:00 | NUR ---
PATIENT IS DROWSY AND READY FOR BED. VSS ON TELE. 02 @ 2L PER NC WITH SATS IN MID 90'S. NO COMPLAINTS. IV FLUIDS INFUSING VIA PUMP INTO LEFT FORARM IV. PAREKH TO DD WITH SMALL AMOUNTS OF URINE NOTED. PATIENT HAS NEW DIAGNOSIS OF CHF WITH 1,500 FR. AHA DIET. RIGHT WRIST AND RIGHT GROIN HEART CATH SITES ARE CD&I. HS BS WAS 237, SSI GIVEN. HS MEDS GIVEN, SEE MAR. HEAD TO TOE ASSESSMENT COMPLETE. DNR STATUS. SOUNDS LIKE PLAN IS LIKELY FOR HOSPICE AT [facility], SEE PALLIATIVE CARE CONSULT. NO OTHER NEEDS AT THIS TIME. CALL LIGHT IN REACH. BED ALARM ON.
[2022-07-27 23:32] VITALS: BP 111/60; PULSE 70; TEMP 98.5
[2022-07-28 03:48] VITALS: BP 99/57; PULSE 62; TEMP 97.9
--- NOTE | 2022-07-28 05:00 | NUR ---
PATIENT HAS C/O FEELING A "LITTLE SHORT OF BREATH" TWICE THIS AM. BOTH TIMES VSS WITH 02 SAT OF 95%-96% ON 2-3L PER NC. PATIENT REPOSITIONED UP IN BED. RT NOTIFIED, NO BREATHING TX ORDERED. PATIENT GOES ON TO SAY HE JUST FEELS A LITTLE CONGESTED. HOSPITALIST NOTIFIED, NO NEW ORDERS AT THIS TIME. WILL MONITOR.
[2022-07-28 07:42] LABS: BASO % 0.1 % (0.0-2.0); EOS # 0.1 K/mm3 (0.0-0.7); EOS % 1.5 % (0.0-4.0); GRAN # 7.6 K/mm3 (1.4-6.5); GRAN % 83.6 % (42.2-75.2); LYMPH # 0.4 K/mm3 (1.2-3.4); LYMPH % 4.8 % (20.0-51.0); MEAN CELL VOLUME 101 fl (80.0-100.0); MEAN CORPUSCULAR HGB CONC 32 g/dl (33.0-37.0); MEAN PLATELET VOLUME 11.3 fl (7.4-10.4); MONO # 0.8 K/mm3 (0.1-0.6); MONO % 9.3 % (1.7-9.3); PLATELET COUNT 189 K/mm3 (130-400); RED BLOOD COUNT 2.52 M/mm3 (4.20-5.60)
[2022-07-28 07:43] VITALS: BP 109/53; PULSE 66; TEMP 97.8
[2022-07-28 07:43] LABS: HEMATOCRIT 25.4 % (42.0-52.0); HEMOGLOBIN 8.2 g/dl (13.5-18.0); MEAN CORPUSCULAR HEMOGLOBIN 33 pg (27-31)
[2022-07-28 07:51] LABS: ALBUMIN 2.9 gm/dL (3.4-4.8); CALCIUM 7.9 mg/dL (8.4-10.2); CREATININE, serum 5.48 mg/dL (0.72-1.25); MAGNESIUM 2.1 mg/dL (1.6-2.6); PHOSPHOROUS 9.5 mg/dL (2.3-4.7); POTASSIUM 4.7 mmol/L (3.5-4.5)
--- NOTE | 2022-07-28 09:10 | NUR ---
PATIENT ALERT AND ORIENTED X4. VSS. PATIENT HERE FOR SOA, NEW DIAGNOSIS OF CHF. PATIENT DENIES ANY PAIN. IV TO LEFT FA WITH 1/2 NS RUNNING AT 60ML/HOUR. PATIENT ON 3L PER NC. PAREKH TO DD WITH HAZY, TEA-COLORED OUTPUT. BLE EDEMA 2+ ASSESSMENT PERFORMED. AM MEDS ADMINISTERED. PATIENT RESTING IN BED WITH CALL LIGHT NEAR.
--- NOTE | 2022-07-28 18:05 | NUR ---
PATIENT SPOKE WITH THIS NURSE, REFUSING IV FLUIDS. PATIENT INT AT APPROXIMATELY 1800.
--- NOTE | 2022-07-29 | NUR ---
ASSESSMENT COMPLETE FOR LENDING MANAGER. PT IS COMFORT CARE WITH DAUGHTER AND FAMILY FRIEND AT BEDSIDE. PT UNRESPONSIVE WITH LABORED SHALLOW BREATHING. DAUGHTER EXPRESSED CONCERN ABOUT PT'S LABORED BREATHING AND WANTING HIM GIVEN MORPHINE AND ATIVAN TO MAKE HIM MORE COMFORTABLE. OPTIONS DISCUSSED WITH DAUGHTER, CHARGE NURSE AND MYSELF. ROXANOL GIVEN PER DAUGHTER'S REQUEST. PT GIVEN BED BATH, BED CHANGE, TURNED AND MOUTH SUCTIONED OF EXCESS SALIVA. JUST BEFORE 2345HRS, DAUGHTER CAME OUT TO DESK STATING SHE BELIEVED PT HAD STOPPED BREATHING. I WENT IN TO PT'S ROOM, TO CHECK FOR PULSE AND LISTEN FOR HEART SOUNDS. NONE FOUND. CHARGE NURSE CALLED IN TO CHECK FOR THE SAME. TIME OF NOTED AT 2345HRS. DAUGHTER GIVEN TIME GRIEVE. TWO RINGS REMOVED FROM PT'S HANDS AND GIVEN TO DAUGHTER, KARIS MARMOLEJO. IV CATHETER REMOVED INTACT. PAREKH CATHETER REMOVED INTACT. ALL OTHER DRESSINGS REMOVED. ONE BANDAGE PLACED TO IV SITE DUE TO SITE OOZING BLOOD. BODY CLEANED. HOSPITALIST AND BROADCASTER NOTIFIED. [facility] CALLED TO HARVEST PT'S EYES WITH DAUGHTER PERMISSION. HOME TO RETRIEVE BODY AFTER HARVEST.
--- NOTE | 2022-07-29 00:10 | NUR ---
Contacted [facility] and spoke with Barbara. Patient is not a candidate for organ or tissue donation, but is a candidate for eye donation. Instructed not to release body, [facility] will call. [facility] Referral # [id number]
--- NOTE | 2022-07-29 01:15 | NUR ---
Trupti from [facility] called, states patient is a candidate for donation. She requests patient not be released until family is contacted. RN instructed to put saline in eyes and elevate the head of bed.
--- NOTE | 2022-07-29 02:48 | NUR ---
Trupti from [facility] called, states family consented for donation. Tech will arrive at 1720. Requests chart be printed and sent with tech.
== END 2022-07-29 09:29 | disposition expired | DRG 270 ==
LOC: COL.ER 11:23 → SURG 13:54 → MEDICAL 16:45 → ICU 07-24 15:39 → SURG 07-26 16:26
PROVIDERS: Emergency Medicine; Nurse Practitioner; Student in an Organized Health Care Education/Training Program; ADMIT Internal Medicine
PROC: 027034Z Dilation of Coronary Artery, One Artery with Drug-eluting Intraluminal Device, Percutaneous Approach (ICD-10-PCS; principal; 2022-07-24)
PROC: 5A02210 Assistance with Cardiac Output using Balloon Pump, Continuous (ICD-10-PCS; 2022-07-24)
PROC: 4A023N7 Measurement of Cardiac Sampling and Pressure, Left Heart, Percutaneous Approach (ICD-10-PCS; 2022-07-24)
PROC: B2111ZZ Fluoroscopy of Multiple Coronary Arteries using Low Osmolar Contrast (ICD-10-PCS; 2022-07-24)
DX: I13.0 Hypertensive heart and chronic kidney disease with heart failure and stage 1 through stage 4 chronic kidney disease, or unspecified chronic kidney disease (principal); I21.A1 Myocardial infarction type 2; I50.21 Acute systolic (congestive) heart failure; C79.51 Secondary malignant neoplasm of bone; N17.9 Acute kidney failure, unspecified; Z66 Do not resuscitate; D63.1 Anemia in chronic kidney disease; Z20.822 Contact with and (suspected) exposure to COVID-19; D63.0 Anemia in neoplastic disease; C61 Malignant neoplasm of prostate; E78.5 Hyperlipidemia, unspecified; M10.9 Gout, unspecified; E03.9 Hypothyroidism, unspecified; I42.9 Cardiomyopathy, unspecified; N18.30 Chronic kidney disease, stage 3 unspecified; E11.22 Type 2 diabetes mellitus with diabetic chronic kidney disease; I25.10 Atherosclerotic heart disease of native coronary artery without angina pectoris; R57.0 Cardiogenic shock; Z79.4 Long term (current) use of insulin; Z79.899 Other long term (current) drug therapy; Z79.890 Hormone replacement therapy; Z79.891 Long term (current) use of opiate analgesic; Z51.5 Encounter for palliative care
CPT/HCPCS: C1725; C1769; C1874; C1887; C1894; C9600; G0378; J0583; J0696; J1644; J1815; J1940; J2060; J2250; J2270; J2310; J3010; J7120; L1830; Q9967